=== PATIENT | male | born 1950 | race Caucasian/White ===

== ENCOUNTER 2020-07-04 08:13 | Outpatient (CLI) | payer BC, SELFPAY | END 2020-07-04 08:14 | disposition home or self-care (01) | LOC: ANHSURGERY 08:16 | PROVIDERS: PCP Internal Medicine; Visit Provider Surgery | DX: Z01.812 Encounter for preprocedural laboratory examination (principal); K40.90 Unilateral inguinal hernia, without obstruction or gangrene, not specified as recurrent | CPT/HCPCS: 36415; 86850; 86900; 86901 ==

== ENCOUNTER 2020-07-08 01:48 | Outpatient (CLI) | payer BC, SELFPAY ==
[2020-07-08 20:09] LABS: SARS-CoV-2 RNA PCR Negative
== END 2020-07-08 01:49 | disposition home or self-care (01) ==
LOC: ANHCOVIDDT 01:48
PROVIDERS: Visit Provider Surgery
DX: Z01.812 Encounter for preprocedural laboratory examination (principal); Z20.822 Contact with and (suspected) exposure to COVID-19
CPT/HCPCS: C9803; U0003

== ENCOUNTER 2020-07-11 01:51 | Day surgery (SDC) | payer BC, SELFPAY ==
[2020-06-28 11:17] VITALS: BMI 43.6
--- NOTE | 2020-07-10 09:20 | WPDANESEPPF ---
Anes - Initial Pre Proc Eval Procedure: Operation Date: 07/11/20 07:30 Proposed Procedures p Laparoscopic Left Inguinal Hernia Repair With Mesh Davinci Assisted - Chris Tinoco DO s Open Umbilical Hernia Repair - Chris Tinoco DO Date/Time: 07/10/20 09:20 Surgeon: Chris Tinoco DO Pre Op Diagnosis: Left Inguinal Hernia, Umbilical Hernia Repair Patient Data Age: 70 Gender: M Height: 1.85 m Weight: 150 kg Allergies Allergy/AdvReac Type Severity Reaction Status Date / Time No Known Allergies Allergy Mild Verified 07/11/20 06:15 Home Medications Medication Instructions Recorded Confirmed Type tamsulosin 0.4 mg capsule 0.4 mg PO QAM #30 cap 06/29/20 07/11/20 Rx Patient hx anesthesia problems: none Family hx anesthesia problems: none [facility] Past Medical History Medical History Morbid obesity SIRISHA (obstructive sleep apnea) Spinal arthritis Traumatic incomplete tear of rotator cuff Surgical History Surgical History (Updated 07/10/20 @ 09:20 by Gonzalez Russell DO) History of gastric bypass 2014 S/P right rotator cuff repair Status post rotator cuff repair (07/06/19) Family History Family History Sibling Family history of malignant neoplasm of brain Other Family history of arthritis Family history of malignant neoplasm of breast in first degree relative Social History Social History Smoking status: Former smoker Tobacco type: cigarettes Second hand tobacco smoke exposure: No Additional smoking assessment comments: STATES 1/2PK/DAY/15-20YRS QUIT 1984 Alcohol intake: current Drinks per week: 20 Substance use: never Substance use type: does not use Living arrangements: with family Gender identity (if verbalized by the patient): Male Spiritual care concerns: No Anes - Eval Final PreProcedure Day of Procedure 07/10/20 09:20 Patient weight: morbidly obese Heart: regular rate and rhythm Lungs: clear to auscultation and normal air movement Airway: Mallampati scale class III Neurological: alert and oriented Last oral intake: >/= 8 hours ASA classification: III Emergent: no Anesthetic plan: proceed Anesthesia type and monitoring: general LMA and standard monitoring Informed Consent: The patient's anesthetic plan and its attendant risks and benefits were discussed with the patient/family/POA. Questions were solicited and answers provided to the satisfaction of the patient/family/POA.
[2020-07-11] VITALS (8 sets, daily range): BP systolic 134–155; BP diastolic 69–91; PULSE 50–99; RESP 12–20; TEMP 36.1; O2SAT 93–97; BMI 44.3
--- NOTE | 2020-07-11 07:14 | SUR.PREOP ---
DR CALLEJAS NOTIFIED OF HR 45 ADN BP 186/66
[2020-07-11] MEDS: ACETAMINOPHEN 500 MG TABLET 1000 MG PO (07:33)
[2020-07-11] MEDS: KETOROLAC 15 MG/ML VIAL (*BKC) IV PUSH (07:33)
[2020-07-11] MEDS: LACTATED RINGERS 1,000 ML 30 ML IV CONT ×2 (07:33→10:49)
--- NOTE | 2020-07-11 07:36 | SUR.PREOP ---
0700; PT NOTIFIED OF DELAY. PT CALLED SPOUSE TO LET HER KNOW
--- NOTE | 2020-07-11 08:32 | PM.IMHP ---
H&P: HPI History of Present Illness Date/Time: 07/11/20 08:32 Chief Complaint: Left inguinal hernia and umbilical hernia Narrative: Gonzalez Oshea is a 70 year old male who presents for left inguinal hernia and umbilical hernia repair. He denies any changes was last seen in the office. Review of Systems Review of Systems: All systems reviewed & are unremarkable except as noted in HPI and below PMFSH Past Medical History Medical History Morbid obesity SIRISHA (obstructive sleep apnea) Spinal arthritis Traumatic incomplete tear of rotator cuff Surgical History Surgical History History of gastric bypass 2015 S/P right rotator cuff repair Status post rotator cuff repair (07/06/19) Family History Family History Sibling Family history of malignant neoplasm of brain Other Family history of arthritis Family history of malignant neoplasm of breast in first degree relative Social History Social History Smoking status: Former smoker Tobacco type: cigarettes Second hand tobacco smoke exposure: No Additional smoking assessment comments: STATES 1/2PK/DAY/15-20YRS QUIT 1984 Alcohol intake: current Drinks per week: 20 Substance use: never Substance use type: does not use Living arrangements: with family Gender identity (if verbalized by the patient): Male Spiritual care concerns: No Meds Home Medications and Allergies Home Medications Medication Instructions Recorded Confirmed Type tamsulosin 0.4 mg capsule 0.4 mg PO QAM #30 cap 06/29/20 07/11/20 Rx Allergies Allergy/AdvReac Type Severity Reaction Status Date / Time No Known Allergies Allergy Mild Verified 07/11/20 06:15 Exam GI: GI Palp: Yes Hernia present (1-2 cm umbilical hernia) : Scrotum: inguinal hernia on the left Assessment and Plan Assessment and plan (1) Left inguinal hernia: Code(s): K40.90 - Unilateral inguinal hernia, without obstruction or gangrene, not specified as recurrent Status: Acute Assessment and Plan: I have recommended laparoscopic left inguinal hernia repair with mesh, de Dolly assisted and open umbilical hernia repair. I have discussed the procedure, risks, benefits, and alternatives with the patient. All questions answered. No changes since last seen in office. (2) Umbilical hernia without mention of obstruction or gangrene: Code(s): K42.9 - Umbilical hernia without obstruction or gangrene Status: Acute
--- NOTE | 2020-07-11 08:34 | WPDHPUPDATE1 ---
History and Physical Update Update Date/Time: 07/11/20 08:34 History and Physical has been reviewed, including an updated exam of the patient. There are NO changes in the patient's condition. Risks, benefits, and alternatives have been discussed and questions answered. Patient agrees to proceed with procedure.
[2020-07-11] MEDS: ceFAZolin 3 GM/D5W 100 ML 100 ML IVPB (09:03)
[2020-07-11] MEDS: BUPIVACAINE HCL 0.5% PF 30 ML VIAL INFILTRATE (10:04)
--- NOTE | 2020-07-11 10:38 | PM.PROC ---
Procedure Note - Detailed Date of procedure: 07/11/20 Pre-op diagnosis: Left Inguinal Hernia, Umbilical Hernia Repair Post-op diagnosis: same (indirect LIH, reducible umbilical hernia) Procedure performed: 1. Laparoscopic left inguinal hernia repair with Progrip mesh, da Dolly assisted 2. Open umbilical hernia repair Description of procedure: Procedure as well as risks, benefits, and alternatives were discussed with the patient. Written consent was obtained and placed in chart prior to procedure. Patient was brought back to surgical suite. He was placed supine on operating table. Time-out was done to confirm patient and procedure. He was then intubated by Anesthesia Department. His abdomen was prepped and draped in sterile fashion using chlorhexidine prep. 0.5% bupivacaine with epinephrine was infiltrated at each location for incision. An 8 mm incision was made in the left lateral abdomen, and a 5 mm Optiview trocar was advanced through the abdominal layers under direct visualization. Once inside the abdominal cavity, carbon dioxide insufflation was used to create a pneumoperitoneum. A camera was inserted and the abdominal cavity was inspected. The patient was placed in slight Trendelenburg position. An 8 millimeter incision was made on the right lateral abdomen and an 8 millimeter trocar was inserted under direct visualization. Another 8 millimeter incision was made just superior to the umbilicus and an 8 millimeter trocar was inserted under direct visualization. The 5 mm port was then removed and this was replaced with another 8 mm robotic port. The robotic arms were brought up to the patient's bedside and secured to the ports. The camera and instruments were inserted. I then moved over to the robotic console and took control of the camera and instruments. After careful inspection of the abdominal cavity, I began scoring the peritoneum along the left lower quadrant using scissors with electrocautery. The preperitoneal plane was entered and this was carefully dissected caudally along the inferior epigastric vessels. Careful dissection with scissors with electrocautery and blunt dissection was used to continue this dissection. I dissected far enough laterally to allow for mesh placement, and also dissected medially to identify the pubic arch and Curry's ligament. The hernia sac was identified and carefully dissected posteriorly. The cord contents were also identified and the peritoneum was carefully dissected far enough posteriorly to allow for mesh placement. Once an adequate pocket was created, I then placed the mesh within the preperitoneal pocket and carefully unfolded it. The mesh was centered on the hernia defect with adequate overlap circumferentially. The inferior edge of the mesh was inspected to ensure that it was far enough away from the peritoneal edge. The mesh appeared in proper position overlying the entire myopectineal orifice. The peritoneum was then closed over the mesh using a 3-0 V-lock running absorbable suture. The robotic instruments were removed. The robotic arms were disengaged from the ports and moved away from the bedside. The patient was flattened out in bed, the ports were removed under direct visualization, and the pneumoperitoneum was released. I then made a 3 cm curvilinear incision just inferior to the umbilicus. Electrocautery was used for hemostasis and for dissection down to the linea alba. The hernia sac was carefully dissected off of the umbilicus and the hernia sac was excised and discarded. A 1 cm hernia was identified at the umbilicus. This was closed using 0 Ethibond figure of 8 sutures. A total of 3 sutures were placed transversely to approximate the fascia. The repair was inspected and appeared secure. The umbilical stalk was reapproximated to the fascia using 3 0 Vicryl simple interrupted suture. The deep dermis was reapproximated using 3 0 Vicryl simple interrupted sutures. The skin of the incisions w
--- NOTE | 2020-07-11 12:25 | SUR.PHASEII ---
PATIENT DRINKING LOTS OF WATER. UNDERSTANDS HE HAS TO URINATE BEFORE GOING HOME.
== END 2020-07-11 13:13 | disposition home or self-care (01) ==
PROVIDERS: Visit Provider Surgery
PROC: 8E0Y4CZ Robotic Assisted Procedure of Lower Extremity, Percutaneous Endoscopic Approach (ICD-10-PCS; CPT 49650; principal; 2020-07-11 07:30)
PROC: (CPT 49650; 2020-07-11 07:30)
DX: K40.90 Unilateral inguinal hernia, without obstruction or gangrene, not specified as recurrent (principal); K42.9 Umbilical hernia without obstruction or gangrene; G47.33 Obstructive sleep apnea (adult) (pediatric); E66.01 Morbid (severe) obesity due to excess calories; Z68.41 Body mass index [BMI] 40.0-44.9, adult; Z98.84 Bariatric surgery status; Z87.891 Personal history of nicotine dependence
CPT/HCPCS: 49650; 49585; S2900; A9270; C1781; J0330; J0690; J1100; J1170; J1885; J2370; J2405; J2704; J3010; J7030; J7120

== ENCOUNTER 2023-07-08 09:09 | Outpatient (CLI) | payer MEDICARE, SELFPAY ==
--- NOTE | ~2023-07-08 | XR_ITS ---
Right ankle Technique: AP, oblique, and lateral views were obtained. Clinical History: Fracture follow-up COMPARISON: 06/11/2023 Findings: Oblique, minimally displaced fracture the distal fibula similar to prior exam, with minimal if any significant interval healing. Osseous alignment is unchanged. Ankle mortise and other visuali zed joint spaces are preserved. Soft tissues are otherwise unremarkable. Impression: Minimal if any interval change in oblique fracture of the distal fibula. Possible minimal interval pa rtial healing. Reviewed, dictated and finalized at location [facility]. [employer] Impression: Minimal if any interval change in oblique fracture of the distal fibula. Possib le minimal interval partial healing.
== END 2023-07-08 09:10 | disposition home or self-care (01) ==
PROVIDERS: Visit Provider Orthopaedic Surgery
DX: S82.64XD Nondisplaced fracture of lateral malleolus of right fibula, subsequent encounter for closed fracture with routine healing (principal); X58.XXXD Exposure to other specified factors, subsequent encounter
CPT/HCPCS: 73610

== ENCOUNTER 2025-01-11 07:32 | Outpatient (CLI) | payer MEDICARE, SELFPAY ==
--- NOTE | ~2025-01-11 | XR_ITS ---
AP view of the pelvis and AP and lateral views of the left hip Clinical history: Pain Findings: No acute fracture or dislocation is seen. Osseous alignment is anatomic. Bilateral hip and SI joint spaces are preserved. Soft tissues are unremarkable. Impression: No significant abnormality is seen. Reviewed, dictated and finalized at location . Impression: No significant abnormality is seen.
== END 2025-01-11 07:33 | disposition home or self-care (01) ==
PROVIDERS: PCP Orthopaedic Surgery; Visit Provider Orthopaedic Surgery
DX: M25.552 Pain in left hip (principal)
CPT/HCPCS: 73502

== ENCOUNTER 2025-06-20 12:22 | Outpatient (CLI) | payer MEDICARE, SELFPAY | END 2025-06-20 12:23 | disposition home or self-care (01) | LOC: ANHAUDIO 12:23 | PROVIDERS: Visit Provider Otolaryngology | DX: H93.13 Tinnitus, bilateral (principal); H90.42 Sensorineural hearing loss, unilateral, left ear, with unrestricted hearing on the contralateral side | CPT/HCPCS: 92557; 92567 ==